=== PATIENT | male | born 1950 | race Caucasian/White ===

== ENCOUNTER 2019-02-19 07:40 | Inpatient (IN) | payer OTHER ==
[~2019-02-19] VITALS: Ht 165.1 cm; Wt 64.4 kg
[~2019-02-19 07:40] MED LIST: LISINOPRIL30 MG PO
== END 2019-02-26 12:05 | disposition home or self-care (01) | DRG 331 ==
LOC: O/R 02-21 07:08 → SURG 02-21 07:08 → RECOVERY 02-21 10:30 → SURG 02-21 19:02
PROVIDERS: ADMIT Colon & Rectal Surgery
PROC: 0DTP4ZZ Resection of Rectum, Percutaneous Endoscopic Approach (ICD-10-PCS; 2019-02-21)
PROC: 07TC4ZZ Resection of Pelvis Lymphatic, Percutaneous Endoscopic Approach (ICD-10-PCS; 2019-02-21)
PROC: 0DJD8ZZ Inspection of Lower Intestinal Tract, Via Natural or Artificial Opening Endoscopic (ICD-10-PCS; 2019-02-21)
PROC: 0D1B4Z4 Bypass Ileum to Cutaneous, Percutaneous Endoscopic Approach (ICD-10-PCS; principal; 2019-02-21 10:30)
DX: C20 Malignant neoplasm of rectum (principal); R59.0 Localized enlarged lymph nodes; Z92.21 Personal history of antineoplastic chemotherapy; Z93.2 Ileostomy status

== ENCOUNTER 2020-02-23 13:00 | Inpatient (IN) | payer OTHER ==
[~2020-02-23] VITALS: Ht 165.1 cm; Wt 61.2 kg
[2020-02-23] MEDS ORDERED: ZESTRIL2.5 MG PO (15:20)
== END 2020-03-05 11:28 | disposition home or self-care (01) | DRG 337 ==
LOC: ADM 13:00 → EDSTATUS 13:00 → O/R 02-27 06:55 → SURH 02-27 06:55
PROVIDERS: ADMIT Colon & Rectal Surgery; ATTEND Colon & Rectal Surgery
PROC: 0DBB4ZZ Excision of Ileum, Percutaneous Endoscopic Approach (ICD-10-PCS; 2020-02-27)
PROC: 0WQF4ZZ Repair Abdominal Wall, Percutaneous Endoscopic Approach (ICD-10-PCS; 2020-02-27)
PROC: 0DN84ZZ Release Small Intestine, Percutaneous Endoscopic Approach (ICD-10-PCS; principal; 2020-02-27 07:00)
DX: Z43.2 Encounter for attention to ileostomy (principal); I10 Essential (primary) hypertension; K66.0 Peritoneal adhesions (postprocedural) (postinfection); K43.9 Ventral hernia without obstruction or gangrene

== ENCOUNTER 2020-02-25 06:30 | Day surgery (SDC) | payer OTHER ==
[~2020-02-25 06:30] MED LIST changes: +ZESTRIL2.5 MG PO
== END 2020-02-25 14:20 | disposition home or self-care (01) ==
LOC: AMB-ENDOS 06:30
PROVIDERS: ATTEND Colon & Rectal Surgery
DX: K62.89 Other specified diseases of anus and rectum (principal); K64.8 Other hemorrhoids

== ENCOUNTER 2021-02-23 06:46 | Day surgery (SDC) | payer OTHER | END 2021-02-23 11:50 | disposition home or self-care (01) | LOC: AMB-ENDOS 06:46 | PROVIDERS: ATTEND Colon & Rectal Surgery | DX: K62.89 Other specified diseases of anus and rectum (principal); K64.8 Other hemorrhoids; Z20.822 Contact with and (suspected) exposure to COVID-19; Z12.11 Encounter for screening for malignant neoplasm of colon ==